=== PATIENT | female | born 1960 | race Caucasian/White ===

== ENCOUNTER → 2023-11-16 07:53 | Outpatient (REF) | payer BC, SELFPAY | LOC: HWWDC 07:53 | PROVIDERS: ATTENDING PHYSICIAN Obstetrics & Gynecology; FAMILY PHYSICIAN Family Medicine | DX: Z12.31 Encounter for screening mammogram for malignant neoplasm of breast (principal) | CPT/HCPCS: 77063; 77067 ==

== ENCOUNTER → 2024-10-14 09:15 | Outpatient (REF) | payer BC, SELFPAY | LOC: HWRAD 09:15 | PROVIDERS: ATTENDING PHYSICIAN Internal Medicine Rheumatology; FAMILY PHYSICIAN Family Medicine; REFERRING PHYSICIAN Obstetrics & Gynecology | DX: M81.0 Age-related osteoporosis without current pathological fracture (principal); Z13.820 Encounter for screening for osteoporosis; M25.50 Pain in unspecified joint; M25.522 Pain in left elbow; M77.12 Lateral epicondylitis, left elbow; M25.562 Pain in left knee | CPT/HCPCS: 73080; 73560; 77080 ==

== ENCOUNTER → 2024-11-17 07:25 | Outpatient (REF) | payer BC, SELFPAY | LOC: HWWDC 07:25 | PROVIDERS: ATTENDING PHYSICIAN Obstetrics & Gynecology; FAMILY PHYSICIAN Family Medicine | DX: Z12.31 Encounter for screening mammogram for malignant neoplasm of breast (principal) | CPT/HCPCS: 77063; 77067 ==